=== PATIENT | female | born 1930 | race Caucasian/White ===

== ENCOUNTER 2017-01-25 12:15 | Observation (INO) | payer MEDICARE, MEDICAID ==
[~2017-01-25] VITALS: Ht 170.2 cm; Wt 57.9 kg
[~2017-01-25 12:15] MED LIST: ACET-141 GTB; ACET325T45 GTB; ASCO500S2 GTB; BISA10SU58 PR; CALC-277 GTB; CARB1TAB23 GTB; CRAN3875 GTB; CRAN425C GTB; DIGO125T GTB; DOCU-144 GTB; GABA100C GTB; IPRA3AMP INHALATION; LEVA0.634 INHALATION; LEVO88TA3 GTB; MAGN400O4 GTB; MULT-552 GTB; NA P230E RC; OMEP20CA16 GTB; ONDA4TAB8 GTB; PROP20TA4 GTB; RIVA15TA GTB; TYL500 GTB
[2017-01-25 12:20] VITALS: Ht 170.2 cm; Wt 57.9 kg
[2017-01-25] MEDS ORDERED: ONDANSETRON 4 MG INJ IV PRN ×2 (13:30→15:30)
[2017-01-25] MEDS ORDERED: ACETAMINOPHEN 325 MG TAB PO PRN (13:30)
[2017-01-25 13:48] LABS: BASOPHIL # 0.1 10^3/ul (0.0-0.1); BASOPHILS % 0.9 % (0.0-2.0); EOSINOPHILS # 0.4 10^3/ul (0.0-0.5); EOSINOPHILS % 4.1 % (0.0-7.0); HEMATOCRIT 51.6 % (37.0-47.0); HEMOGLOBIN 16.1 g/dl (12.0-16.0); LYMPHOCYTES % 28.1 % (15.0-51.0); MEAN CORPUSCULAR HEMOGLOBIN 27.7 pg (29.0-33.0); MEAN CORPUSCULAR HGB CONC 31.2 g/dl (32.0-37.0); MEAN CORPUSCULAR VOLUME 88.8 fl (82.0-101.0); MEAN PLATELET VOLUME 11.1 fl (7.4-10.4); MONOCYTE # 1.1 10^3/ul (0.3-0.9); MONOCYTES % 9.8 % (0.0-11.0); NEUTROPHILS % 56.7 % (39.0-77.0); PLATELET COUNT 246 10^3/UL (140-415); RED BLOOD COUNT 5.81 10^6/ul (4.20-5.40); RED CELL DISTRIBUTION WIDTH 16.8 % (11.5-14.5); WHITE BLOOD COUNT 10.8 10^3/ul (4.8-10.8)
[2017-01-25 13:59] LABS: INR 1.45; PROTIME 17.7 Sec (12.2-14.2); PT RATIO 1.4
[2017-01-25 14:00] LABS: PARTIAL THROMBOPLASTIN TIME 45.2 Sec (25.0-35.0)
[2017-01-25 14:10] LABS: CREATININE 0.63 mg/dl (0.44-1.00); POTASSIUM 4.8 mmol/L (3.5-5.1)
[2017-01-25] MEDS ORDERED: LIDOCAINE 1% (MPF) 5 ML VIAL SC ONE (14:30)
[2017-01-25] MEDS ORDERED: APIX5TAB GTB (15:22)
[2017-01-25] MEDS ORDERED: METO-448 GTB (15:24)
[2017-01-25] MEDS ORDERED: MULT9LIQ4 GTB (15:25)
[2017-01-25] MEDS ORDERED: OXYM30MI NASAL (15:28)
[2017-01-25] MEDS ORDERED: morphine 2 MG INJ IV PRN (15:30)
[2017-01-25] MEDS ORDERED: BISACODYL 10 MG SUPP PR PRN (15:30)
[2017-01-25] MEDS ORDERED: ACETAMINOPHEN 650 MG SUPP PR PRN (15:30)
[2017-01-25] MEDS ORDERED: HYDR-906 GTB (15:30)
[2017-01-25] MEDS ORDERED: NA PHOSPHATE/BIPHOS 133 ML ENEMA PR PRN (15:30)
[2017-01-25] MEDS ORDERED: hydrALAzine 20 MG INJ IV PRN (15:30)
[2017-01-25] MEDS ORDERED: NACL 0.9% 3 ML SYG IV SCH (15:30)
[2017-01-25] MEDS ORDERED: AMLO5TAB4 GTB (15:31)
[2017-01-25] MEDS ORDERED: PANT40TA3 GTB (15:32)
[2017-01-25] MEDS ORDERED: POTA8CAP GTB (15:32)
[2017-01-25 16:10] VITALS: BP 124/80; PULSE 86; RESP 16
[2017-01-25] MEDS: DEXTROSE 5%-0.9% NACL 1,000 ML IV SCH (18:38)
[2017-01-25 19:12] VITALS: BP 126/74; RESP 18
--- NOTE | 2017-01-25 20:21 | HP ---
DATE OF ADMISSION: 01/25/2017 REASON FOR ADMISSION: Malfunctioning G tube, history of CVA, with right hemiplegia. HOSPITAL COURSE: Patient is an unfortunate 86-year-old female with a history of dementia; hypothyroidism; paroxysmal atrial fibrillation; low back pain; gastric ulcer, status post surgery in 2007 also, unfortunately was found to have a massive CVA, with right hemiplegia back in August 2014. Since then, she has a G-tube feeding and resides at the nursing home facility at [facility]. Patient's G-tube was malfunctioning, and food could not be given, so we decided to send her to the hospital, as we cannot delay feeding her. In the ER, G-tube was definitely malfunctioning and quite old. We decided to admit the patient for further care. Upon evaluation, patient mumbles, difficult to understand but remains alert, in no distress. PAST MEDICAL HISTORY: Includes dementia, hypothyroidism, parkinsonism, low back pain, paroxysmal atrial fibrillation, psychiatric disorder, bradycardia, CVA with right hemiplegia, dysphagia, G-tube feeding. SURGICAL HISTORY: Includes cholecystectomy, perforated gastric ulcer surgery, right knee surgery, exploratory laparoscopy, right hip hemiarthroplasty. FAMILY HISTORY: Mother from Hodgkin lymphoma. Father from motor vehicle accident. Brother and sister noncontributory. ALLERGIES: MERCURY AND PENICILLIN. REVIEW OF SYSTEMS: Again limited secondary to patient's condition. MEDICATIONS: Include the followin. Colace 100 mg 2 tablets at night. 2. Cranberry capsule 425 daily. 3. Digoxin 0.125 daily. 4. Dulcolax insert 1 daily p.r.n. for constipation. 5. Duonebs every 6 hours p.r.n. 6. Eliquis 5 mg b.i.d. 7. Fleet enema p.r.n. 8. Lopressor 25 b.i.d., with holding parameters. 9. Milk of magnesia p.r.n. 10. Multivitamin 1 tab daily. 11. Nasal spray as directed. 12. Neurontin 100 mg t.i.d. 13. [place] 5/25 one tab q.6 p.r.n. 14. Norvasc 5 mg daily. 15. Oyster shell with calcium plus D 500/200 one tab twice a day. 16. KCl 8 mEq daily. 17. Protonix 40 mg daily. 18. Sinemet 25/250 q.8 hours. 19. Synthroid 88 mcg daily. 20. Tylenol p.r.n. 21. Vitamin C 500 mg t.i.d. 22. Zofran 4 mg q.6 p.r.n. PHYSICAL EXAMINATION: VITAL SIGNS: Temperature is 97.6, pulse 81, respirations 17, blood pressure 145/87. When I saw her, the systolic blood pressure was in the 170s. Saturation 98 percent on 2 L. GENERAL: Patient is in no acute distress, frail. Temporal wasting. Mumbles. Difficult to understand. CARDIOVASCULAR: S1 and S2. Regular rate. LUNGS: Clear. ABDOMEN: Soft, nontender. EXTREMITIES: No clubbing, cyanosis, or edema. NEUROLOGIC: Right-sided weakness is definitely noted. GASTROINTESTINAL: Patient's G-tube, slight redness around the G- tube site, with very old G-tube, dark and black in color, not working. LABORATORY: White count is 10.8, hemoglobin 16.1, hematocrit 52, platelet count 246, neutrophils 67 percent, lymphs are 28 percent. Chemistry: Sodium 143, potassium 4.8, chloride 102, bicarb 21, BUN is 18, creatinine 0.63 and glucose of 104. INR is 1.45. The patient does take Eliquis. No radiographic imaging done. Chest x-ray done on 02/09/2016, at that time, shows diffuse interstitial prominence in both lungs, stable, stable perihilar infiltrates in the right lung. This is old. No new chest x-ray. No EKG done. ASSESSMENT AND PLAN: This is an 86-year-old, female with history of atrial fibrillation and cerebrovascular accident, with right hemiplegia and aphasia, who has history also of hypothyroidism, hypertension, presents with malfunctioning G- tube. 1. Malfunctioning G-tube. We will consult Gastroenterology. The patient will need a new G-tube feeding. In the meantime, patient will be hydrated with intravenous fluids. Patient be provided with Pepcid for gastrointestinal prophylaxis. 2. History of cerebrovascular accident, with atrial fibrillation. Hold Eliquis, as patient is pending procedure. Will put her on Lovenox for now. 3. History of a "urinary tract infection." Will obtain urine studies. White blood cell count is normal. 4. Hypothyroidism. Continue Synthroid. Follow up TSH level. 5. Parkinsonism. On Sinemet. Resume oral meds once G-tube is fixed. 6. Obtain baseline electrocardiogram. 7. Hypertension. In the meantime, intravenous hydralazine will be provided. Patient cannot tolerate oral meds. 8. Will discuss code status with family, as I believe she was DNR before, but with feeding is okay. We will follow. Dictated By: All Quinones MD /dante/yolanda /Document#: [id number]
[2017-01-25] MEDS: FAMOTIDINE 20 MG INJ IV SCH (21:02)
--- NOTE | 2017-01-25 21:52 | ERA ---
ER Documentation Chief Complaint Date/Time DATE: 01/25/17 TIME: 21:49 Chief Complaint PAMELA, [facility] G-TUBE REPLACEMENT HPI 86-year-old nonverbal female with a history of stroke, G-tube dependent, sent by her assisted facility for problem with her G-tube. Her G-tube has been leaking and not functioning normally. Her primary care doctor, Dr. Quinones was notified, and sent her to the ED. Patient is unable to speak but nods when I ask her questions. She denies any abdominal pain at this time or any discomfort. Otherwise history is limited as the patient is nonverbal ROS Limited secondary to the patient being nonverbal Medications Home Meds Reported Medications Pantoprazole* (Protonix*) 40 Mg Tablet.dr, 40 MG GTB DAILY, TAB 01/25/17 Potassium Chloride* (Potassium Chloride*) 8 Meq Capsule.er, 8 MEQ GTB DAILY, CAP 01/25/17 Amlodipine Besylate* (Norvasc*) 5 Mg Tablet, 5 MG GTB DAILY, TAB HOLD IF SBP BELOW 110, HR BELOW 60 01/25/17 Hydrocodone/Acetaminophen ([place] 5-325 Tablet) 1 Each Tablet, 1 EACH GTB Q6H for FOR PAIN 7-10, TAB 01/25/17 Multivit &Minerals/Ferrous Fum (MULTIVITAMIN LIQUID) 9 Mg/15 Ml Liquid, 5 ML GTB DAILY 01/25/17 Metoprolol Tartrate* (Lopressor*) 25 Mg Tab, 25 MG GTB BID, #60 TAB HOLD FOR SBP<110,HR<60 01/25/17 Apixaban* (Eliquis*) 5 Mg Tablet, 5 MG GTB BID, TAB 01/25/17 Acetaminophen* (Acetaminophen*) 500 MG Extra Strength Tablet, 1000 MG GTB Q4 Y for MODERATE PAIN LEVEL 4-6, TAB 01/29/16 Cran/Vitc/Mannose/Inulin/Brom (Uti-Stat Liquid) 3,875 Mg/30 Ml Liquid, 3875 MG GTB BID GIVE 30CC VIA G-TUBE BID FOR UTI PROPHYLAXIS 01/29/16 Levothyroxine Sodium* (Levothyroxine Sodium*) 88 Mcg Tablet, 88 MCG GTB BEFORE BREAKFAST, #30 TAB 01/29/16 Ipratropium-Albuterol (Ipratropium-Albuterol) 0.5-3 Mg/3 Ml Ampul.neb, 3 ML INHALATION Q6, #30 VIAL 01/29/16 Na Phos,M-B/Na Phos,Di-Ba (Fleet Enema Extra) 230 Ml Enema, 1 UNIT RC Q24 Y for NEEDED, ENEMA 01/29/16 Ascorbic Acid* (Vitamin C* Liq) 500 Mg/5 Ml Syrup, 500 MG GTB TID, ML 01/29/16 Calcium Carbonate/Vitamin D3 ([place]STER SHELL 500 MG + VIT D TB) 1 Each Tablet, 1 EACH GTB BID 09/22/14 Ondansetron Hcl* (Zofran*) 4 Mg Tablet, 4 MG GTB Q6H Y for NAUSEA AND OR VOMITING, TAB 08/13/14 Acetaminophen* (Acetaminophen*) 325 Mg Tablet, 650 MG GTB Q6H Y for MILD PAIN LEVEL 1-3, TAB 08/13/14 Carbidopa-Levodopa* (Sinemet*) 25-250 Mg Tablet, 1 TAB GTB Q8, TAB 08/13/14 Gabapentin* (Neurontin*) 100 Mg Capsule, 100 MG GTB TID, CAP 08/13/14 Magnesium Hydroxide* (Milk Of Magnesia*) 400 Mg/5 Ml Oral.susp, 30 ML GTB Q24H for CONSTIPATION, ML IF ORDERED STOOL SOFTERNERS ARE INFECTIVE. 1200MG/15ML GIVE 30CC(2400MG) LIQUID 08/13/14 Bisacodyl* (Dulcolax*) 10 Mg/Supp.rect Supp.rect, 10 MG FL Q24H Y for CONSTIPATION, SUPP.RECT 08/13/14 Digoxin* (Digoxin*) 0.125 Mg Tab, 0.125 MG GTB DAILY, TAB HOLD IF AP BELOW 60/MIN 08/13/14 Cranberry Extract (Cranberry) 425 Mg Capsule, 425 MG GTB DAILY 08/13/14 Docusate Sodium* (Colace*) 100 Mg Capsule, 200 MG GTB QHS, CAP HOLD FOR LBM 100MG, GIVE 2 TABS 08/13/14 Discontinued Reported Medications Oxymetazoline Hcl (Nasal [place]) 30 Ml Mist, 4 SPRAYS NASAL BID, #1 BOTTLE 01/25/17 Acetaminophen* (Tylenol*) 500 Mg Tab, 1000 MG GTB DAILY for PAIN MANAGEMENT, TAB 01/29/16 Omeprazole* (Omeprazole*) 20 Mg Capsule.dr, 20 MG GTB DAILY, #30 CAP 01/29/16 Levalbuterol Hcl* (Levalbuterol Hcl*) 0.63 Mg/3 Ml Vial.neb, 0.63 MG INHALATION Q8 Y for WHEEZING AND SOB, VIAL 01/29/16 Propranolol Hcl* (Propranolol Hcl*) 20 Mg Tablet, 20 MG GTB Q6 for HYPERTENSION , TAB HOLD IF SBP BELOW 110, HR BELOW 60 01/29/16 Ipratropium-Albuterol (Ipratropium-Albuterol) 0.5-3 Mg/3 Ml Ampul.neb, 3 ML INHALATION Q8, #30 VIAL 01/29/16 Rivaroxaban* (Xarelto*) 15 Mg Tablet, 15 MG GTB WITH BREAKFAST DINNE for CVA PROPHLAXIS, TAB 01/29/16 Multivitamins* (Once Daily*) 1 Tab Tablet, 1 TAB GTB DAILY, TAB 08/13/14 Allergies Allergies: Coded Allergies: Penicillins (Verified Allergy, Severe, RASH, 01/25/17) mercury (elemental) (Verified Allergy, Severe, 01/25/17) PMhx/Soc History of Surgery: Yes (CHOLECYSTECTOMY, RT HIP AND KNEE SX, THYROIDECTOMY, APPENDECTOMY) Anesthesia Reaction: No Hx Neurological Disorder: Yes (DEMENTIA, CVA 2014) Hx Respiratory Disorders: Yes (HX OF PNA) Hx Cardiac Disorders: Yes (A-FIB, CARDIAC DYSRHYTHMIAS) Hx Miscellaneous Medical Probl: No Hx Alcohol Use: No Hx Substance Use: No Hx Tobacco Use: No Smoking Status: Never smoker FmHx Family History: other (Unable to obtain) Physical Exam Vitals Vital Signs Date Time Temp Pulse Resp B/P Pulse Ox O2 Delivery O2 Flow Rate FiO2 01/25/17 16:10 Nasal Cannula 2.0 01/25/17 16:10 98.2 86 16 124/80 97 Nasal Cannula 01/25/17 15:16 81 17 145/87 98 Nasal Cannula 2.0 01/25/17 12:20 97.6 81 18 131/67 97 Physical Exam Const: Sleeping but arousable, nontoxic, no apparent distress Head: Atraumatic Eyes: Normal Conjunctiva ENT: Normal External Ears, Nose and Mouth. Neck: Full range of motion..~ No meningismus. Resp: Clear to auscultation bilaterally Cardio: Regular rate and rhythm, no murmurs Abd: Soft, non tender, non distended. G-tube in place, appears old and is leaking. Gastrostomy site is non-erythematous.Normal bowel sounds Skin: No petechiae or rashes Back: No midline or flank tenderness Ext: No cyanosis, or edema Neur: Awake and alert Psych: Normal Mood and Affect Result Diagram: 01/25/17 1330 01/25/17 1330 Results 24 hrs Laboratory Tests Test 01/25/17 13:30 White Blood Count 10.810^3/ul Red Blood Count 5.8110^6/ul Hemoglobin 16.1g/dl Hematocrit 51.6% Mean Corpuscular Volume 88.8fl Mean Corpuscular Hemoglobin 27.7pg Mean Corpuscular Hemoglobin Concent 31.2g/dl Red Cell Distribution Width 16.8% Platelet Count 50005^3/UL Mean Platelet Volume 11.1fl Neutrophils % 56.7% Lymphocytes % 28.1% Monocytes % 9.8% Eosinophils % 4.1% Basophils % 0.9% Nucleated Red Blood Cells % 0.0/100WBC Neutrophils # (Manual) 6.110^3/ul Lymphocytes # 3.010^3/ul Monocytes # 1.110^3/ul Eosinophils # 0.410^3/ul Basophils # 0.110^3/ul Nucleated Red Blood Cells # 0.010^3/ul Prothrombin Time 17.7Sec Prothrombin Time Ratio 1.4 INR International Normalized Ratio 1.45 Activated Partial Thromboplast Time 45.2Sec Sodium Level 143mmol/L Potassium Level 4.8mmol/L Chloride Level 102mmol/L Carbon Dioxide Level 21mmol/L Anion Gap 25 Blood Urea Nitrogen 18mg/dl Creatinine 0.63mg/dl Glucose Level 104mg/dl Calcium Level 10.0mg/dl Current Medications Medications (Trade) Dose Ordered Sig/Melvin Route PRN Reason Start Time Stop Time Status Last Admin Dose Admin Ondansetron HCl (Zofran Inj) 4 mg BRIDGE ORDER PRN IV NAUSEA AND/OR VOMITING 01/25/17 13:30 01/26/17 13:29 Acetaminophen (Tylenol Tab) 650 mg ER BRIDGE PRN PO MILD PAIN/FEVER 01/25/17 13:30 01/26/17 13:29 Lidocaine (Xylocaine 1% (Mpf)) 5 ml ONCE ONCE SC 01/25/17 14:30 01/25/17 14:31 DC IV Flush (NS 3 ml) 3 ml PER PROTOCOL IV 01/25/17 15:30 Ondansetron HCl (Zofran Inj) 4 mg Q6H PRN IV NAUSEA AND/OR VOMITING 01/25/17 15:30 Acetaminophen (Tylenol Supp) 650 mg Q6H PRN FL PAIN LEVEL 1-3 OR FEVER 01/25/17 15:30 Morphine Sulfate (morphine) 2 mg Q4H PRN IV SEVERE PAIN LEVEL 7-10 01/25/17 15:30 Bisacodyl (Dulcolax Supp) 10 mg DAILY PRN FL CONSTIPATION 01/25/17 15:30 Sodium Biphosphate/ Sodium Phosphate 133 ml 133 ml DAILY PRN FL CONSTIPATION 01/25/17 15:30 Dextrose/Sodium Chloride (D5-NS) 1,000 ml @ 70 mls/hr [id number] IV 01/25/17 15:30 01/25/17 18:38 Hydralazine HCl (Apresoline) 10 mg Q4H PRN IV sbp >165 01/25/17 15:30 Procedures/MDM Labs are unremarkable I was unable to replace the G-tube as there was no balloon to deflate the old G- tube. This will need to be done by GI. I spoke with Dr. Quinones, who will admit the patient to [facility] and consult GI. Patient is otherwise well-appearing without any distress per Departure Diagnosis: Primary Impression: Encounter for feeding tube placement Condition: Stable EKMESYDNEE CARVAJAL MD Jan 25, 2017 21:52
[2017-01-25 22:07] LABS: ADD UMIC YES; UR ASCORBIC ACID 40 mg/dL (NEGATIVE); UR BACTERIA MANY /HPF (NONE SEEN); UR BILIRUBIN (Dip) NEGATIVE (NEGATIVE); UR BLOOD (Dip) 2+ mg/dL (NEGATIVE); UR CLARITY TURBID (CLEAR); UR COLOR YELLOW (YELLOW); UR GLUCOSE (Dip) NEGATIVE (NEGATIVE); UR KETONES (Dip) NEGATIVE (NEGATIVE); UR LEUKOCYTE ESTERASE (Dip) 3+ Leu/ul (NEGATIVE); UR NITRITE (Dip) NEGATIVE (NEGATIVE); UR NONSQUAMOUS EPITHELIAL CELL 2 /HPF (NONE SEEN); UR RBC > 182 /HPF (0-5); UR SPECIFIC GRAVITY (Dip) 1.015 (1.003-1.030); UR TOTAL PROTEIN (Dip) 2+ mg/dl (NEGATIVE); UR UROBILINOGEN (Dip) NEGATIVE (NEGATIVE); UR WBC CLUMPS MANY /HPF (NONE SEEN)
[2017-01-26 01:38] VITALS: BP 114/92; RESP 18
[2017-01-26] MEDS: DEXTROSE 5%-0.9% NACL 1,000 ML IV SCH ×2 (05:48→09:35)
[2017-01-26 05:52] LABS: BASOPHIL # 0.1 10^3/ul (0.0-0.1); BASOPHILS % 0.9 % (0.0-2.0); EOSINOPHILS # 0.5 10^3/ul (0.0-0.5); HEMOGLOBIN 14.8 g/dl (12.0-16.0); LYMPHOCYTES # 4.2 10^3/ul (0.8-2.9); LYMPHOCYTES % 33.2 % (15.0-51.0); MEAN CORPUSCULAR HGB CONC 31.5 g/dl (32.0-37.0); MEAN PLATELET VOLUME 11.6 fl (7.4-10.4); MONOCYTE # 1.4 10^3/ul (0.3-0.9); MONOCYTES % 10.9 % (0.0-11.0); NEUTROPHILS % 50.6 % (39.0-77.0); PLATELET COUNT 261 10^3/UL (140-415); RED BLOOD COUNT 5.28 10^6/ul (4.20-5.40); RED CELL DISTRIBUTION WIDTH 15.9 % (11.5-14.5); WHITE BLOOD COUNT 12.6 10^3/ul (4.8-10.8)
[2017-01-26 06:13] LABS: ALBUMIN/GLOBULIN RATIO 0.95; BILIRUBIN,INDIRECT 0.6 mg/dl (0-1.1); BILIRUBIN,TOTAL 0.6 mg/dl (0.2-1.3); CALCIUM 9.5 mg/dl (8.4-10.2); CREATININE 0.67 mg/dl (0.44-1.00); MAGNESIUM 2.3 mg/dl (1.7-2.5); POTASSIUM 4.6 mmol/L (3.5-5.1); TOTAL PROTEIN 8.2 g/dl (6.1-8.1)
[2017-01-26 06:37] LABS: THYROID STIMULATING HORMONE 4.74 MIU/L (0.465-4.680)
[2017-01-26 08:00] VITALS: BP 116/73; RESP 18
[2017-01-26] MEDS: FAMOTIDINE 20 MG INJ IV SCH ×2 (09:29→20:46)
[2017-01-26] MEDS: ENOXAPARIN 40 MG/0.4 ML SYG SC SCH (09:32)
[2017-01-26 12:47] VITALS: BP 111/67; RESP 18
[2017-01-26] MEDS: MEROPENEM 500MG/50 ML (PMX) 50 ML IVPB SCH ×2 (13:34→20:46)
[2017-01-26] MEDS: DEXTROSE 5%-0.45% NACL 1,000 ML IV SCH (14:31)
--- NOTE | 2017-01-26 14:50 | PN ---
DATE: 01/26/2017 CONTINUATION: PHYSICAL EXAM: Temperature 98.5, pulse 85, respiration 18, blood pressure 111/67, saturation 93 percent on room air. GENERAL: Patient is pale and non-communicative, difficult to understand. HEART: S1, S2. Regular rate. LUNGS: Clear. ABDOMEN: Soft. The old G-tube is in place, nonfunctional. EXTREMITIES: No clubbing, cyanosis, or edema. Right-sided weakness is noted. LABS: Reviewed. MEDS: Include meropenem 500 IV every 12 h. Lovenox 40 mg subcu every day, Pepcid 20 mg IV every 12 h, Zofran as needed. Tylenol as needed morphine as needed. Dulcolax as needed. Fleet enema as needed. D5 normal 70 mL an hour and hydralazine 10 mg IV every 3 h as needed. ASSESSMENT AND PLAN: This is an unfortunate 86-year-old, female, with history of atrial fibrillation. Cerebrovascular accident with right hemiplegia and aphasia. Hypothyroidism, hypertension who presented with malfunctioning G tube. 1. Malfunctioning G tube. Gastroenterology consultation was made. Awaiting G-tube replacement. 2. Urinary tract infection. Start the patient on Merrem and follow up urine culture results. Follow up WBC. 3. History of cerebrovascular accident and atrial fibrillation. Eliquis is on hold for planned procedure. In the meantime, patient is on Lovenox for deep venous thrombosis prophylaxis. We will switch back to Eliquis post-procedure. 4. Hypothyroidism. Continue Synthroid. The patient is taking oral Synthroid. TSH is 4.7. Continue current dose once able to take pills via G tube. 5. Parkinsonism. Has been on Sinemet. 6. EKG shows atrial fibrillation, septal infarct, age undetermined. ST-T abnormality lateral ischemia or effect. Again, will resume Eliquis once G-tube is in place. 7. We will discuss code status with family. Previously she was a DNR. 8. Hypertension control, as needed hydralazine IV. 9. Discussed with family and nursing staff. We will follow him. Dictated By: All Quinones MD /dante/nadine /Document#: [id number]
--- NOTE | 2017-01-26 18:10 | RADRPT ---
Vent Rate: 85 bpm RR Interval: 0 msec DE Interval: 0 msec QRS Duration: 74 msec QT Interval: 362 msec QTC Interval: 430 msec P-R-T [place]: 0 - -55 - 0 degrees Atrial fibrillation Left axis deviation Septal infarct , age undetermined ST amp; T wave abnormality, consider lateral ischemia or digitalis effect Abnormal ECG Electronically Signed By: Bin English [id number]
[2017-01-26 19:13] VITALS: BP 134/74; RESP 18
[2017-01-26] MEDS ORDERED: VITAMIN A & D 5 GM OINT PACKET TOP ONE (21:05)
--- NOTE | 2017-01-26 23:02 | PN ---
DATE: 01/26/2017 SUBJECTIVE DATA: Patient seen, awaiting G-tube placement. Case discussed with Dr. Nettles, the GI specialist. I spoke this morning with the patient's family. In addition, noted the patient had urine analysis to be remarkably positive with +2 leukocyte esterase, WBC greater than 182, and many bacteria. I will start the patient on imipenem. [facility] The patient otherwise is hemodynamically stable. PHYSICAL EXAM: VITAL SIGNS: Temperature 98.5, pulse 85, respiration 18, blood pressure 111/67, saturation 93 percent in room air. In general, patient is in no acute distress. Frail. Decreased dentition. Alert, but does not communicate much. HEART: S1 and S2. Regular rate. LUNGS: Clear. ABDOMEN: Soft, nontender. EXTREMITIES: No clubbing, cyanosis, or edema. Right-sided weakness is noted. LABS: White count is 12.6, high. Hemoglobin 14.8, hematocrit 47, platelet count 261 . Chemistry, sodium 147, potassium 4.6, total bicarb 20, BUN is 16, creatinine 0.67, glucose of 109, LFTs all normal. Albumin 4.0, TSH is 4.74. INR 1.05. ASSESSMENT AND PLAN: The patient has been on Eliquis prior to admission. Patient has a history of a paroxysmal atrial fibrillation. Urine culture is still pending. Dictated By: All Quinones MD /dante/ /Document#: [id number]
[2017-01-27 01:34] VITALS: BP 114/79; RESP 18
[2017-01-27] MEDS: DEXTROSE 5%-0.45% NACL 1,000 ML IV SCH ×4 (04:18→22:50)
[2017-01-27 05:29] LABS: BASOPHIL # 0.1 10^3/ul (0.0-0.1); BASOPHILS % 0.7 % (0.0-2.0); EOSINOPHILS # 0.4 10^3/ul (0.0-0.5); EOSINOPHILS % 4.6 % (0.0-7.0); HEMATOCRIT 46.2 % (37.0-47.0); HEMOGLOBIN 14.5 g/dl (12.0-16.0); LYMPHOCYTES # 2.6 10^3/ul (0.8-2.9); LYMPHOCYTES % 28.7 % (15.0-51.0); MEAN CORPUSCULAR HEMOGLOBIN 27.3 pg (29.0-33.0); MEAN CORPUSCULAR HGB CONC 31.4 g/dl (32.0-37.0); MEAN PLATELET VOLUME 10.6 fl (7.4-10.4); MONOCYTES % 11.2 % (0.0-11.0); NEUTROPHILS % 54.6 % (39.0-77.0); PLATELET COUNT 262 10^3/UL (140-415); RED BLOOD COUNT 5.31 10^6/ul (4.20-5.40); RED CELL DISTRIBUTION WIDTH 15.9 % (11.5-14.5)
[2017-01-27 05:52] LABS: CALCIUM 9.2 mg/dl (8.4-10.2); CREATININE 0.69 mg/dl (0.44-1.00); POTASSIUM 3.8 mmol/L (3.5-5.1)
[2017-01-27 05:56] LABS: PHOSPHORUS 3.4 mg/dl (2.5-4.9)
[2017-01-27 07:40] VITALS: BP 169/84; RESP 20
[2017-01-27] MEDS: MEROPENEM 500MG/50 ML (PMX) 50 ML IVPB SCH ×2 (09:00→20:25)
[2017-01-27] MEDS: FAMOTIDINE 20 MG INJ IV SCH ×2 (09:00→20:25)
[2017-01-27] MEDS: ENOXAPARIN 40 MG/0.4 ML SYG SC SCH (09:08)
--- NOTE | 2017-01-27 13:18 | CONS ---
DATE OF ADMISSION: 01/25/2017 DATE OF CONSULTATION: 01/27/2017 REFERRING PHYSICIAN: All Quinones MD REASON FOR CONSULTATION: Malfunctioning G-tube. HISTORY OF PRESENT ILLNESS: An 86-year-old female with a history of Parkinson's disease, perforated gastric ulcer, cholecystectomy, right hip hemiarthroplasty, dementia, atrial fibrillation, chronic back pain, has had a malfunctioning G-tube. It was old and decayed so GI consult was called in to replace this G-tube. The patient is demented, and no history could be obtained from her. Most of the information gathered from the conservator who happens to be the nurse also. PAST MEDICAL HISTORY: CVA, right hemiplegia, dysphagia, dementia, atrial fibrillation. ALLERGIES: MERCURY AND PENICILLIN. FAMILY HISTORY: All reviewed. Mother had lymphoma. Father in motor vehicle accident. REVIEW OF SYSTEMS: Negative. PHYSICAL EXAMINATION: Alert, awake, not in distress. VITAL SIGNS: Stable. HEENT: Unremarkable. NECK: Supple. No thyromegaly. No lymphadenopathy. HEART: No murmur, gallop, or click. LUNGS: Clear. ABDOMEN: Benign. The G-tube is old and decayed and nonfunctional. Abdomen is otherwise totally benign. EXTREMITIES: No edema. NEUROLOGIC: Keeps eyes open, but does not communicate. IMPRESSION: 1. Malfunctioning G-tube. 2. Cerebrovascular accident. 3. Dementia. 4. Atrial fibrillation. 5. Hypertension. 6. Parkinson disease. 7. Hypothyroidism. PLAN: At this point, is to proceed with the change of G-tube. Discussed with the conservator and got a verbal consent on phone. The nurses were witnesses, and we would change it once the G-tube is available. Dictated By: Bright Nettles MD /fnt/ec /Document#: [id number] CC: All Quinones MD;*End*
[2017-01-27 14:03] VITALS: BP 154/84; PULSE 73; RESP 20
[2017-01-27] MEDS: MUPIROCIN 2% 22 GM OINT TOP SCH ×2 (14:29→20:25)
[2017-01-27 20:16] VITALS: BP 122/67; RESP 19
[2017-01-28 02:25] VITALS: BP 154/77; RESP 19
--- NOTE | 2017-01-28 03:18 | PN ---
DATE: 01/27/2017 SUBJECTIVE: The patient is seen and appears comfortable. Appreciate Dr. Nettles's (GI) input, awaiting G-tube placement. PHYSICAL EXAM: VITALS: Temperature 98.4, pulse 89, respirations 20, blood pressure is high at 169/84. Here it was 114/79. Saturation is 99 percent on 2 L nasal cannula. GENERAL: The patient is normocephalic and atraumatic. Pale. Decreased dentition. Opens eyes, nonverbal. HEART: S1 and S2. Regular rate. LUNGS: Clear. ABDOMEN: Soft. Some drainage from the left G-tube site, old G- tube. EXTREMITIES: Right-sided weakness is noted. LABS: White count is now normal at 9, hemoglobin 14.5, hematocrit 46, platelet count 262. O2 55 percent to 29 percent. Chemistry: Sodium 144, potassium 3.8, chloride 105, bicarb 23. BUN is 11, creatinine 0.6, and glucose 106. INR 1.05. Urine was positive. Urine cultures preliminary report shows culture too young to be evaluated. MRSA screening is positive. MEDICATIONS: 1. D5 half-normal saline at 70 mL/hour. 2. Meropenem 500 IV q.12 h. 3. Lovenox 4 mg subcu daily. 4. Pepcid 20 IV q.12 h. 5. Zofran p.r.n. 6. Tylenol p.r.n. 7. Morphine p.r.n. 8. Dulcolax p.r.n. 9. Hydralazine 10 mg IV q.4 h p.r.n. for systolic greater than 165. ASSESSMENT AND PLAN: This is an 86-year-old female with a history of atrial fibrillation and cerebrovascular accident with right hemiplegia, aphasia, hypothyroidism, hypertension who presented with malfunctioning G tube. 1. Malfunctioning G tube, awaiting placement. 2. Urinary tract infection. Continue meropenem. 3. Methicillin-resistant Staphylococcus aureus of the nares. Placed the patient on Bactroban ointment to the nares. Follow up urine culture results. 4. History of cerebrovascular accident; in the meantime, on Lovenox and restart Eliquis status post procedure. 5. Hypothyroidism. Continue Synthroid orally once G-tube is in place. 6. Parkinsonism, has been on Sinemet. 7. Hypertension on IV hydralazine p.r.n. All meds to be started once the G-tube is in place. DISPOSITION: Back to [facility] facility after G-tube placement. We will follow. Dictated By: All Quinones MD /dante/jamie /Document#: [id number]
[2017-01-28 05:49] LABS: BASOPHIL # 0.1 10^3/ul (0.0-0.1); BASOPHILS % 0.8 % (0.0-2.0); EOSINOPHILS # 0.4 10^3/ul (0.0-0.5); EOSINOPHILS % 5.1 % (0.0-7.0); HEMATOCRIT 45.6 % (37.0-47.0); HEMOGLOBIN 14.7 g/dl (12.0-16.0); LYMPHOCYTES # 2.8 10^3/ul (0.8-2.9); MEAN CORPUSCULAR HEMOGLOBIN 27.5 pg (29.0-33.0); MEAN CORPUSCULAR HGB CONC 32.2 g/dl (32.0-37.0); MEAN CORPUSCULAR VOLUME 85.2 fl (82.0-101.0); MEAN PLATELET VOLUME 11.7 fl (7.4-10.4); MONOCYTES % 11.9 % (0.0-11.0); NEUTROPHILS % 49.9 % (39.0-77.0); PLATELET COUNT 238 10^3/UL (140-415); RED BLOOD COUNT 5.35 10^6/ul (4.20-5.40); RED CELL DISTRIBUTION WIDTH 15.8 % (11.5-14.5); WHITE BLOOD COUNT 8.7 10^3/ul (4.8-10.8)
[2017-01-28 06:07] LABS: CALCIUM 9.5 mg/dl (8.4-10.2); CREATININE 0.68 mg/dl (0.44-1.00); MAGNESIUM 1.8 mg/dl (1.7-2.5); PHOSPHORUS 3.6 mg/dl (2.5-4.9); POTASSIUM 3.7 mmol/L (3.5-5.1)
[2017-01-28 08:41] VITALS: BP 151/72; RESP 19
[2017-01-28] MEDS: MUPIROCIN 2% 22 GM OINT TOP SCH (09:40)
[2017-01-28] MEDS: MEROPENEM 500MG/50 ML (PMX) 50 ML IVPB SCH (09:40)
[2017-01-28] MEDS: FAMOTIDINE 20 MG INJ IV SCH (09:41)
[2017-01-28] MEDS: ENOXAPARIN 40 MG/0.4 ML SYG SC SCH (09:42)
--- NOTE | 2017-01-28 11:38 | PDOCDIS ---
Discharge Instructions CONDITION Patient Condition: Stable HOME CARE INSTRUCTIONS: Diet Instructions: Special Diet: gt FOLLOW UP/APPOINTMENTS Follow-up Plan discharge to [facility], see reconciliation, start prior feeding ZAHIDA BRIAN MD Jan 28, 2017 11:38
--- NOTE | 2017-01-28 12:45 | CONS ---
Date/Time of Note Date/Time of Note DATE: 01/28/17 TIME: 12:44 Assessment/Plan Assessment/Plan Additional Assessment/Plan IMPRESSION: 1. Malfunctioning G-tube. 2. Cerebrovascular accident. 3. Dementia. 4. Atrial fibrillation. 5. Hypertension. 6. Parkinson disease. 7. Hypothyroidism. 8. G-tube changed to 20 [place] Plan Resume feeding through G-tube. If able to tolerate feeding then discharge from GI point Consultation Date/Type/Reason Admit Date/Time Jan 25, 2017 at 16:34 Initial Consult Date 24 HR Interval Summary Constitutional: no complaints Exam/Review of Systems Vital Signs Vitals Vital Signs Date Time Temp Pulse Resp B/P Pulse Ox O2 Delivery O2 Flow Rate FiO2 01/28/17 08:41 97.0 79 19 151/72 98 01/27/17 14:03 Room Air 01/26/17 08:00 2.0 Intake and Output 01/27/17 01/27/17 01/28/17 15:00 23:00 07:00 Intake Total 470 ml 1050 ml 600 ml Output Total 600 ml Balance 470 ml 1050 ml 0 ml Exam Constitutional: alert, oriented, well developed Psych: nl mood/affect, no complaints Head: atraumatic, normocephalic Eyes: EOMI, PERRL, nl conjunctiva, nl lids, nl sclera ENMT: nl external ears & nose, nl lips & teeth, nl nasal mucosa & septum Neck: non-tender, supple Respiratory: clear to auscultation, normal air movement Cardiovascular: nl pulses, regular rate and rhythm Gastrointestinal: nl liver, spleen, non-tender, soft Musculoskeletal: nl extremities to inspection, nl gait and stance Extremities: normal pulses Neurological: JEWELSMITH II-XII intact, nl mental status, nl speech, nl strength Skin: nl turgor, No rash or lesions Lymph: nl lymph nodes Results Result Diagram: 01/28/1744601/28/17446 Results 24 hrs Laboratory Tests Test 01/28/17 04:47 White Blood Count 8.7 Red Blood Count 5.35 Hemoglobin 14.7 Hematocrit 45.6 Mean Corpuscular Volume 85.2 Mean Corpuscular Hemoglobin 27.5 L Mean Corpuscular Hemoglobin Concent 32.2 Red Cell Distribution Width 15.8 H Platelet Count 238 Mean Platelet Volume 11.7 H Neutrophils % 49.9 Lymphocytes % 32.0 Monocytes % 11.9 H Eosinophils % 5.1 Basophils % 0.8 Nucleated Red Blood Cells % 0.0 Neutrophils # (Manual) 4.3 Lymphocytes # 2.8 Monocytes # 1.0 H Eosinophils # 0.4 Basophils # 0.1 Nucleated Red Blood Cells # 0.0 Sodium Level 141 Potassium Level 3.7 Chloride Level 103 Carbon Dioxide Level 24 Anion Gap 18 H Blood Urea Nitrogen 8 Creatinine 0.68 Glucose Level 94 Calcium Level 9.5 Phosphorus Level 3.6 Magnesium Level 1.8 Medications Medications Current Medications Ondansetron HCl (Zofran Inj) 4 mg Q6H PRN IV NAUSEA AND/OR VOMITING; Start at 15:30 Acetaminophen (Tylenol Supp) 650 mg Q6H PRN AK PAIN LEVEL 1-3 OR FEVER; Start 01/25/17 at 15:30 Morphine Sulfate (morphine) 2 mg Q4H PRN IV SEVERE PAIN LEVEL 7-10; Start 01/25 at 15:30 Bisacodyl (Dulcolax Supp) 10 mg DAILY PRN [place] CONSTIPATION; Start 01/25/17 at 15 :30 Sodium Biphosphate/ Sodium Phosphate (Fleet Enema) 133 ml DAILY PRN [place] CONSTIPATION; Start 01/25/17 at 15:30 Famotidine (Pepcid Iv) 20 mg Q12 IV Last administered on 01/28/17 09:41; Admin Dose 20 MG; Start 01/25/17 at 21:00 Enoxaparin Sodium (Lovenox) 40 mg DAILY SC Last administered on 01/28/17 09:42 ; Admin Dose 40 MG; Start 01/26/17 at 09:00 Hydralazine HCl 10 mg 10 mg Q4H PRN IV sbp >165; Start 01/25/17 at 15:30 Meropenem/Sodium Chloride 50 ml @ 100 mls/hr Q12 IVPB Last administered on 09:40; Admin Dose 100 MLS/HR; Start 01/26/17 at 11:00 Dextrose/Sodium Chloride (D5-1/2ns) 1,000 ml @ 60 mls/hr [id number] IV Last administered on 01/27/17 22:50; Admin Dose 60 MLS/HR; Start 01/26/17 at 14:00 Mupirocin (Bactroban) 1 applic BID TOP Last administered on 01/28/17t 09:40; Admin Dose 1 APPLIC; Start 01/27/17 at 14:00 MISTY SO MD Jan 28, 2017 12:45
--- NOTE | 2017-01-28 20:14 | DS ---
DATE OF ADMISSION: 01/25/2017 DATE OF DISCHARGE: 01/28/2017 REASON FOR ADMISSION: Malfunctioning G-tube, dehydration. 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 Patient has dysphagia on G-tube feeding. She does not speak much. She needs total care. She is bedridden. Patient's G-tube was malfunctioning and was not working. It was decided to send to the ER. Patient could not get her medications and food. Upon admission, she was noted to be dehydrated. Hemoglobin 16.1. She is hemoconcentrated. BUN/creatinine 18/0.63. Patient was hydrated. Studies were done, including UA, which showed that the patient has urinary tract infection. Patient also has had positive MRSA of the nares. Urine culture shows Proteus mirabilis, sensitive to ampicillin, cefotaxime, gentamicin, and tobramycin and is started on imipenem, as patient is allergic to penicillin. She responded well, and white count normalized. She has been afebrile for awhile. Dr. Nettles today replaced the G-tube now. Per his discussion with the nurse, there is bile coming out, and it is in place. Feeding will be initiated, and patient can be discharged back to the [facility] facility with the following medications. DISCHARGE MEDICATIONS: 1. Tylenol 650 q.6h. p.r.n. 2. Dulcolax p.r.n. 3. Colace 200 at night. 4. Milk of magnesia via the G-tube as directed. 5. Fleet enema as needed. 6. We will restart patient's Eliquis 5 mg b.i.d. Actually, based on her age and weight, we can reduce it to 2.5 mg p.o. b.i.d. 7. Merrem 500 IV q.12h. for 4 days. 8. Bactroban ointment to the nares for 10 days. 9. Zofran p.r.n. 10. Calcium carbonate 1 tab b.i.d. 11. KCl 8 mEq daily. 12. Norvasc 5 mg daily. 13. Vitamin C liquid daily. 14. Sinemet 25/250 q.8 hours. 15. UTI liquids and cranberry daily. 16. Digoxin 0.125 daily, hold if heart rate less than 60. 17. Neurontin 100 t.i.d. 18. Breathing treatments p.r.n. 19. Synthroid 88 mcg daily. TSH was 4.7. 20. Lopressor 25 b.i.d., hold for heart rate less than 60 and SBP less than 110. 21. Protonix 40 mg daily. 22. Multivitamin daily. FINAL DIAGNOSES: 1. Malfunctioning G-tube. 2. Urinary tract infection. 3. Dehydration. 4. History of cerebrovascular accident, with right hemiplegia. 5. Hypertension. 6. Parkinsonism. 7. Debilitated state. 8. Constipation. 9. Gastritis. 10. Dysphagia. 11. Baseline encephalopathy. 12. Hypothyroidism. 13. Vascular dementia. DISCHARGE CONDITION: Fair. DISCHARGE INSTRUCTIONS: Feeding per previous order. Keep head elevated. Patient discharged in fair condition back to the [facility] facility in [facility]. Any change in condition, to call 911. I have been in touch with the family. They are aware of plan of care. Dictated By: All Quinones MD /dante/yolanda /Document#: [id number]
== END 2017-01-28 14:59 ==
LOC: E/R 12:15 → MS1 16:34
PROVIDERS: ADMIT Internal Medicine; ATTEND Internal Medicine
DX: K94.23 Gastrostomy malfunction (principal); N39.0 Urinary tract infection, site not specified; E86.0 Dehydration; I69.351 Hemiplegia and hemiparesis following cerebral infarction affecting right dominant side; I69.320 Aphasia following cerebral infarction; I10 Essential (primary) hypertension; G20 Parkinson's disease; E03.9 Hypothyroidism, unspecified; R53.81 Other malaise; K59.00 Constipation, unspecified; K29.70 Gastritis, unspecified, without bleeding; R13.10 Dysphagia, unspecified; F01.50 Vascular dementia, unspecified severity, without behavioral disturbance, psychotic disturbance, mood disturbance, and anxiety; I48.0 Paroxysmal atrial fibrillation; A49.02 Methicillin resistant Staphylococcus aureus infection, unspecified site; Z87.01 Personal history of pneumonia (recurrent); Z88.0 Allergy status to penicillin; Z90.49 Acquired absence of other specified parts of digestive tract; Z79.01 Long term (current) use of anticoagulants; Z96.641 Presence of right artificial hip joint; Z80.7 Family history of other malignant neoplasms of lymphoid, hematopoietic and related tissues
CPT/HCPCS: 80048; 80053; 81001; 83735; 84100; 84443; 85025; 85610; 85730; 87081; 87086; 93005; 99285; G0378; J1650; J2185; J7042

== ENCOUNTER 2017-12-24 01:39 | Inpatient (IN) | END 2018-01-01 16:30 | DRG 871 ==

== ENCOUNTER 2018-10-31 19:13 | Emergency (ER) | payer MEDICARE, MEDICAID ==
[~2018-10-31] VITALS: Ht 152.4 cm; Wt 68.0 kg
[~2018-10-31 19:13] MED LIST changes: +AMLO5TAB4 GTB; +APIX5TAB GTB; -CALC-277 GTB; +CALC1TAB93 GTB; -CRAN425C GTB; +CRAN425C6 GTB; +HYDR-4011 GTB; -IPRA3AMP INHALATION; +IPRA3AMP29 INHALATION; -LEVA0.634 INHALATION; +MAGN400O19 GTB; -MAGN400O4 GTB; +METO-448 GTB; -MULT-552 GTB; +MULT9LIQ4 GTB; -OMEP20CA16 GTB; +PANT40TA3 GTB; +POTA8CAP GTB; -PROP20TA4 GTB; -RIVA15TA GTB; -TYL500 GTB
[2018-10-31 19:14] VITALS: Ht 152.4 cm; Wt 68.0 kg
[2018-10-31] MEDS ORDERED: SODIUM CHLORIDE 0.9% 1L BAG IV* STA (19:15)
[2018-10-31] MEDS ORDERED: CEFEPIME 2GM/50 ML (PMX) 50 ML IVPB STA (19:15)
[2018-10-31] MEDS ORDERED: VANCOMYCIN 1 GM (PMX) 250 ML IVPB ONE (19:30)
--- NOTE | 2018-10-31 19:31 | ERD ---
ER Documentation Chief Complaint Chief Complaint SOB X TODAY. HPI 88-year-old female with multiple medical problems brought in by ambulance from her long term facility for respiratory distress that started earlier today. Patient is unable to provide any history due to her altered mental status. Per report, she normally speaks. ROS Patient unable to answer questions due to altered mental status and respiratory distress Medications Home Meds Reported Medications Pantoprazole* (Protonix*) 40 Mg Tablet.dr, 40 MG GTB DAILY, TAB 01/25/17 Potassium Chloride* (Potassium Chloride*) 8 Meq Capsule.er, 8 MEQ GTB DAILY, CAP 01/25/17 Amlodipine Besylate* (Norvasc*) 5 Mg Tablet, 5 MG GTB DAILY, TAB HOLD IF SBP BELOW 110, HR BELOW 60 01/25/17 Hydrocodone/Acetaminophen ([place] 5-325 Tablet) 1 Each Tablet, 1 EACH GTB Q6H for FOR PAIN -02/07, TAB 01/25/17 Multivit &Minerals/Ferrous Fum (MULTIVITAMIN LIQUID) 9 Mg/15 Ml Liquid, 5 ML GTB DAILY 01/25/17 Metoprolol Tartrate* (Lopressor*) 25 Mg Tab, 25 MG GTB BID, #60 TAB HOLD FOR SBP<110,HR<60 01/25/17 Apixaban* (Eliquis*) 5 Mg Tablet, 5 MG GTB BID, TAB 01/25/17 Acetaminophen* (Acetaminophen*) 500 MG Extra Strength Tablet, 1000 MG GTB Q4 PRN for MODERATE PAIN LEVEL 4-6, TAB 01/29/16 Cran/Vitc/Mannose/Inulin/Brom (Uti-Stat Liquid) 3,875 Mg/30 Ml Liquid, 3875 MG GTB BID GIVE 30CC VIA G-TUBE BID FOR UTI PROPHYLAXIS 01/29/16 Levothyroxine Sodium* (Levothyroxine Sodium*) 88 Mcg Tablet, 88 MCG GTB BEFORE BREAKFAST, #30 TAB 01/29/16 Ipratropium-Albuterol (Ipratropium-Albuterol) 0.5-3 Mg/3 Ml Ampul.neb, 3 ML INHALATION Q6, #30 VIAL 01/29/16 Na Phos,M-B/Na Phos,Di-Ba (Fleet Enema Extra) 230 Ml Enema, 1 UNIT RC Q24 PRN for NEEDED, ENEMA 01/29/16 Ascorbic Acid* (Vitamin C* Liq) 500 Mg/5 Ml Syrup, 500 MG GTB TID, ML 01/29/16 Calcium Carbonate/Vitamin D3 (OYSTER SHELL 500 MG + VIT D TB) 1 Each Tablet, 1 EACH GTB BID 09/22/14 Ondansetron Hcl* (Zofran*) 4 Mg Tablet, 4 MG GTB Q6H PRN for NAUSEA AND OR VOMITING, TAB 08/13/14 Acetaminophen* (Acetaminophen*) 325 Mg Tablet, 650 MG GTB Q6H PRN for MILD PAIN LEVEL 1-3, TAB 08/13/14 Carbidopa-Levodopa* (Sinemet*) 25-250 Mg Tablet, 1 TAB GTB Q8, TAB 08/13/14 Gabapentin* (Neurontin*) 100 Mg Capsule, 100 MG GTB TID, CAP 08/13/14 Magnesium Hydroxide* (Milk Of Magnesia*) 400 Mg/5 Ml Oral.susp, 30 ML GTB Q24H for CONSTIPATION, ML IF ORDERED STOOL SOFTERNERS ARE INFECTIVE. 1200MG/15ML GIVE 30CC(2400MG) LIQUID 08/13/14 Bisacodyl* (Dulcolax*) 10 Mg/Supp.rect Supp.rect, 10 MG [place] Q24H PRN for CONSTIPATION, SUPP.RECT 08/13/14 Digoxin* (Digoxin*) 0.125 Mg Tab, 0.125 MG GTB DAILY, TAB HOLD IF AP BELOW 60/MIN 08/13/14 Cranberry Extract (Cranberry) 425 Mg Capsule, 425 MG GTB DAILY 08/13/14 Docusate Sodium* (Colace*) 100 Mg Capsule, 200 MG GTB QHS, CAP HOLD FOR LBM 100MG, GIVE 2 TABS 08/13/14 Allergies Allergies: Coded Allergies: Penicillins (Verified Allergy, Severe, RASH, 01/25/17) mercury (elemental) (Verified Allergy, Severe, 01/25/17) PMhx/Soc History of Surgery: Yes Anesthesia Reaction: No (NOÉ) Hx Respiratory Disorders: No (Noé) Hx Cardiac Disorders: Yes (Afib) Hx Psychiatric Problems: No (NOÉ) Hx Miscellaneous Medical Probl: Yes Hx Alcohol Use: No Hx Substance Use: No Hx Tobacco Use: No FmHx Family History: No diabetes Physical Exam Vitals Vital Signs Date Temp Pulse Resp B/P (MAP) Pulse Ox O2 O2 Flow FiO2 Time Delivery Rate 10/31/18 37 21:14 10/31/18 176 97 100 20:09 10/31/18 101.0 170 21 45/16 (26) 96 BIPAP 20:04 10/31/18 101.0 167 24 50/28 (35) 95 BIPAP 19:49 10/31/18 101.0 168 28 65/51 (56) 72 BIPAP 19:42 10/31/18 101.0 173 28 72/31 (45) 72 BIPAP 19:19 10/31/18 101.1 160 39 72/ (45) 94 19:14 Physical Exam INITIAL VITAL SIGNS: Reviewed by me GENERAL: Patient is lying on gurney, in severe respiratory distress. Wet breath sounds heard HEAD: Normocephalic EYES: EOMI. PERRL. No icterus. No pallor. Lids, lashes, and conjunctiva clear. ENT: Mucous membranes dry, no erythema or tonsillar exudates. Airway patent. NECK: Supple. No masses. Full range of motion. No meningismus. No lymphadenopathy RESPIRATORY: Rales bilaterally. ABDOMEN: Soft, non-distended, non-tender. No guarding. No rebound. No pulsatile mass. Bowel sounds normal. EXTREMITIES: No edema. Mild cyanosis. SKIN: Warm and dry. Decreased turgor. No obvious rash, petechiae or purpura. NEUROLOGIC: Somnolent, difficult to arouse. Not withdrawing to painful stimuli. Decreased tone in all 4 extremities Result Diagram: 10/31/18192410/31/181924 Results 24 hrs Laboratory Tests Test 10/31/18 19:15 10/31/18 19:23 10/31/18 19:25 Blood Gas Specimen Source Blood arterial Arterial Blood Date Drawn 10/31/2018 7:50:47 PM Arterial Blood pH 7.252 (Temp corrected) Arterial Blood pCO2 36.1 mmhg (Temp correct) Arterial Blood pO2 129.4 mmHG (Temp corrected) Arterial Blood HCO3 15.5 mmol/L Arterial Blood Base Excess -10.8 mmol/L Arterial Blood 97.6 mmHG Oxygen Saturation Marco Test ACCEPTAB Arterial Blood Gas Left Radial Puncture Site Arterial 0.3 % Blood Carboxyhemoglobin Arterial Blood Methemoglobin 0.4 % Blood Gas A-a O2 Differential 547.5 mmHg Oxyhemoglobin Percent 96.9 % Blood Gas Temperature 37.0 C Blood Gas Respiration Rate 16.0 Blood Gas Actual 50 Respiration Rate Blood Gas Modality MASK - BIPAP FiO2 100.0 % Blood Gas Pressure Support 10 Blood Gas IPAP/EPAP Ratio 15/5 Blood Gas Critical Value Nicole BE MD Read Back Blood Gas Notified Whom MR Blood Gas Notified Time 10/31/2018 7:58:42 PM POC Venous Lactate 4.9 mmol/L White Blood Count 25.6 10^3/ul Red Blood Count 4.79 10^6/ul Hemoglobin 13.5 g/dl Hematocrit 51.4 % Mean Corpuscular Volume 107.3 fl Mean Corpuscular Hemoglobin 28.2 pg Mean Corpuscular 26.3 g/dl Hemoglobin Concent Red Cell Distribution Width 18.6 % Platelet Count 243 10^3/UL Mean Platelet Volume 13.8 fl Immature Granulocytes % 1.400 % Neutrophils % % Lymphocytes % % Monocytes % % Eosinophils % % Basophils % % Nucleated Red Blood Cells % 2.7 /100WBC Immature Granulocytes # 0.360 10^3/ul Neutrophils # 10^3/ul Lymphocytes # 10^3/ul Monocytes # 10^3/ul Eosinophils # 10^3/ul Basophils # 10^3/ul Nucleated Red Blood Cells # 10^3/ul Pathologist YES Review (Hematology) Prothrombin Time 25.6 Sec Prothrombin Time Ratio 2.0 INR International 2.33 Normalized Ratio Activated 41.2 Sec Partial Thromboplast Time Sodium Level 174 mmol/L Potassium Level 5.8 mmol/L Chloride Level 136 mmol/L Carbon Dioxide Level 23 mmol/L Anion Gap 15 Blood Urea Nitrogen 107 mg/dl Creatinine 3.02 mg/dl Est Glomerular Filtrat mL/min Rate mL/min Glucose Level 224 mg/dl Calcium Level 9.7 mg/dl Total Bilirubin 0.7 mg/dl Direct Bilirubin 0.00 mg/dl Indirect Bilirubin 0.7 mg/dl Aspartate Amino 36 IU/L Transf (AST/SGOT) Alanine 16 IU/L Aminotransferase (ALT/SGPT) Alkaline Phosphatase 42 IU/L Troponin I 0.132 ng/ml Total Protein 8.5 g/dl Albumin 4.4 g/dl Globulin 4.10 g/dl Albumin/Globulin Ratio 1.07 Current Medications Medications Dose Sig/Melvin Start Time Status Last (Trade) Ordered Route PRN Stop Time Admin Dose Reason Admin Sodium 2,070 ml BOLUS OVER 2 10/31/18 DC 10/31/18 Chloride HOURS STAT 19:15 10/31/18 19:40 (NS) IV* 19:23 Cefepime HCl 50 ml @ ONCE STAT 10/31/18 DC 10/31/18 100 mls/hr IVPB 19:15 10/31/18 19:40 19:44 Vancomycin 250 ml @ ONCE ONCE 10/31/18 10/31/18 HCl 125 mls/hr IVPB 19:30 10/31/18 20:01 21:29 Morphine 2 mg ONCE STAT 10/31/18 DC 10/31/18 Sulfate IM 20:51 10/31/18 21:05 (morphine) 20:55 Morphine 2 mg STK-MED 10/31/18 DC Sulfate ONCE .ROUTE 20:52 10/31/18 (morphine) 20:53 Morphine 2 mg Q2 PRN IV 10/31/18 DC Sulfate pain 21:00 10/31/18 (morphine) 21:00 Morphine 2 mg Q2 PRN IM 10/31/18 Sulfate pain 21:00 (morphine) Lorazepam 1 mg ONCE ONCE 10/31/18 DC 10/31/18 (Ativan) IM 21:00 10/31/18 21:10 21:01 Lorazepam 1 mg Q2H PRN 10/31/18 (Ativan) IM anxiety 21:00 Morphine 10 mg Q2 PRN PO 10/31/18 UNV Sulfate moderate pain 21:30 (morphine) Procedures/MDM EMERGENT LABS AND DIAGNOSTIC STUDIES: Lab Results above were reviewed and interpreted by me. CBC: Leukocytosis, concerning for infection CMP: Evidence of acute renal failure with hyperkalemia, hypernatremia, evidence of endorgan injury due to shock Troponin indicative of acute cardiac ischemia Lactate elevated 12-lead EKG was interpreted by Ren Hernandez MD: Atrial fibrillation with RVR at 171 bpm Left axis deviation Normal intervals lateral ST depressions Abnormal EKG with possible ischemia, no STEMI Radiology Results as interpreted by Radiology below were reviewed by Ish Hernandez MD: Chest x-ray shows mild bilateral interstitial opacities, concerning for infection Initial Nursing notes reviewed. Previous Medical Records requested via the Electronic Health Record. EMERGENCY DEPARTMENT COURSE / MEDICAL DECISION MAKING: Admit MDM: Patient presented with respiratory distress and evidence of respiratory failure and circulatory shock. Sepsis work-up was initiated. Paperwork was reviewed, patient is DNR, DNI, with limited interventions. She was placed on BiPAP with improvement of her oxygenation and respiratory distress. However she remained hypotensive despite IV fluids. I spoke with her sister, who is her decision-maker, and she does not want any critical care done on the patient. Only IV fluids and antibiotics with symptom control. For this reason, pressors were not started and central line was not placed. After further discussion with the family, the patient was made comfort care and in the ER at 2116. 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 Admitting Physician: Dr. Quinones, who came to bedside, evaluated the patient and spoke with family. Critical Care Time:45 minutes Treatments/Evaluations: Close monitoring and treatment of unstable vital signs, cardiorespiratory, and neurologic status, while maintaining tight balance of fluid, respiratory, and cardiac interventions. This includes the administration of emergency fluid management while maintaining close respiratory support as well as the provision of immediate and broad-spectrum antibiotic therapy, while performing a simultaneous assessment for possible sources in order to direct targeted therapy. This time includes discussing the case with the patient and the patients family.This time also includes the consideration for invasive and chemical support to prevent cardiopulmonary collapse. This time does not include all procedures stated elsewhere in this record. This time also includes review ing old records, labs and radiological studies. This time includes examining and reexamining the patient. Additionally, this time also includes arranging care with admitting and consulting physicians. Departure Diagnosis: Primary Impression: Acute encephalopathy Additional Impressions: Acute respiratory failure Respiratory failure complication: hypoxia Qualified Codes: J96.01 - Acute respiratory failure with hypoxia Septic shock Renal failure Renal failure chronicity: acute Acute renal failure type: unspecified Qualified Codes: N17.9 - Acute kidney failure, unspecified Hypernatremia Hyperkalemia Condition: Critical SYDNEE HERNANDEZ MD Oct 31, 2018 19:31
[2018-10-31 20:04] VITALS: BP 45/16; RESP 21
[2018-10-31] MEDS ORDERED: morphine 2 MG INJ IM STA (20:51)
[2018-10-31] MEDS ORDERED: morphine 2 MG INJ ONE (20:52)
[2018-10-31] MEDS ORDERED: LORAZEPAM 2 MG INJ IM PRN (21:00)
[2018-10-31] MEDS ORDERED: LORAZEPAM 2 MG INJ IM ONE (21:00)
[2018-10-31] MEDS ORDERED: morphine 2 MG INJ IV PRN (21:00)
[2018-10-31] MEDS ORDERED: morphine 2 MG INJ IM PRN (21:00)
[2018-10-31 21:14] VITALS: PULSE 37
[2018-10-31] MEDS ORDERED: morphine LIQ (10 MG/5 ML) CUP PO PRN (21:30)
--- NOTE | 2018-10-31 22:56 | HP ---
DATE OF ADMISSION: 10/31/2018 REASON FOR ADMISSION: Septic shock, severe hyponatremia and profound dehydration likely urosepsis. HISTORY OF PRESENT ILLNESS: The patient is a very unfortunate 88-year-old female well know n to me with history of CVA with a right hemiplegia, paroxysmal atrial fibrillation, hypothyroidism, vascular dementia, low back pain, gastric ulcer, status post surgery in 2007 with history of massive CVA in August 2015. The patient has dysphagia and G-tube feeding and she resides at [facility]. The patient has been admitted multiple times for various reasons, most nota nate "UTIs", also G-tube malfunction. Just recently discharged from [facility] about a month ago for the same. Today, she was noted to be more lethargic and hypoxic. When 911 was mont[place] d, the patient was brought into the emergency department where she was noted to be tachycardic to the 170s with temperature of 101 and blood pressure down to the 40s. The patient was started on IV anti biotics and fluids, but upon discussion with the family, they feel that the patient suffered quite a lot since her stroke a few years ago and she has poor quality of life and ____ condition. They would just like to make sure she is comfortable. The IV that was just placed is "malfunctioning" and I wi ll discuss it with the family regarding ongoing care or possibly putting another line or central line and overall, upon discussion, we decided to just make her comfortable. It is okay to give her morph ine or other medication to make sure she is comfortable at all times. The patient is currently unres ponsive and tachypneic with agonal breathing. She remains in the ER. Case was discussed extensively with the ER physician as we are proceeding with comfort measures. PAST MEDICAL HISTORY: Includes dementia, hypothyroidism, parkinsonism, low back pain, paroxysmal atr ial fibrillation, psychiatric disorder, bradycardia, CVA with right hemiplegia, dysphagia and G-tube feeding. SURGICAL HISTORY: Includes cholecystectomy, perforated gastric ulcer surgery, right knee surgery, ex ploratory laparoscopy, right hip hemiarthroplasty and G-tube placement. FAMILY HISTORY: Mother from Hodgkin lymphoma. Father from motor vehicle accident. Brothe r and sister are noncontributory. ALLERGIES 1. PENICILLIN. 2. ____ ELEMENTAL. HOME MEDICATIONS: Include the followin. Ipratropium breathing treatment. 2. Eliquis 5 mg b.i.d. 3. Amlodipine 5 mg b.i.d. 4. Digoxin 0.125 daily. 5. Lopressor 25 b.i.d. 6. Tylenol p.r.n. 7. Gabapentin 100 t.i.d. 8. [place] p.r.n. 9. Calcium acetate b.i.d. 10. KCl 8 mEq daily. 11. Dulcolax p.r.n. 12. Colace at bedtime. 13. Magnesium hydroxide as directed. 14. Zofran p.r.n. 15. Protonix 40 mg daily. 16. Synthroid 88 mcg daily. 17. Vitamin C t.i.d. 18. Multivitamin 2 daily. 19. Cranberry 425. PHYSICAL EXAMINATION: VITAL SIGNS: Temperature is 101. Pulse 176, it went down to the 140s. Respiration is very shallow and rapid at 30. Blood pressure last one was documented 45/60. Saturation 97% on BiPAP initially, n ow on face mask. GENERAL: The patient is with facial cyanosis. CARDIOVASCULAR: S1 and S2, tachycardic. LUNGS: Decreased bilaterally. ABDOMEN: Soft. G-tube in place. EXTREMITIES: No clubbing, cyanosis or edema. NEUROLOGIC: The patient is not moving all extremities. Cannot follow commands, nonresponsive. DIAGNOSTIC DATA: White count 25.6, hemoglobin 13.5, hematocrit 41, platelet count is 243. Chemistry : Sodium is 174, potassium 5.8, chloride 136, bicarbonate 23, BUN is 107, creatinine 3.02, glucose o f 224. Lactic acid was 4.9. Troponin is high at 0.132. Total protein 8.5, albumin 4.4. ABG showed a pH of 7.25, pCO2 of 36, bicarbonate of 16, saturation is 98% on BiPAP initially 100% FiO2. INR wa s 2.33. This patient does take Eliquis. Chest x-ray shows mild basilar interstitial opacity that ma y represent inflammatory atypical infectious process with aortic atherosclerosis. ASSESSMENT AND PLAN: This is an 88-year-old female with: 1. History of atrial fibrillation, cerebrovascular accident, right hemiplegia, aphasia, hypothyroidi sm and hypotension who presented with septic shock. 2. Septic shock, doing poorly. We will focus on comfort measures. The patient has been suffering. Case was discussed with Stefanie, her sister, who makes the decisions. The patient has been not eating since she was told that she has a G-tube. She has been minimally communicative and overall has been hospitalized very frequently recently, so goal will be focused on comfort measures. O2 support will be provided. Ativan and morphine to be provided for anxiety and pain. The patient is DNR/DNI. Pro gnosis is poor in the setting of most likely septic shock due to urinary tract infection. The patien t is currently in the multiorgan failure, cardiac and renal. She is septic. I was in the ER for mor e than 1 hour to coordinate plan of care with the ER staff and family. The patient is DNR. Dictated By: ZAHIDA NAPOLES/TOSHA Conf#: [id number] DID#: [id number]
== END 2018-10-31 21:16 | disposition expired ==
LOC: E/R 19:13
DX: J96.01 Acute respiratory failure with hypoxia (principal); G93.40 Encephalopathy, unspecified; R65.21 Severe sepsis with septic shock; A41.9 Sepsis, unspecified organism; N17.9 Acute kidney failure, unspecified; E87.0 Hyperosmolality and hypernatremia; E87.5 Hyperkalemia
CPT/HCPCS: 36415; 36600; 71045; 80053; 82803; 83605; 84484; 85025; 85610; 85730; 87040; 93005; 94660; 96372; 96374; 96375; 99285; J0692; J2060; J2270; J3370; J7030